=== PATIENT | female | born 1955 | race Native Hawaiian/Other Pacific Islander ===

== ENCOUNTER 2016-10-24 16:19 | Inpatient (IN) | payer OTHER ==
[~2016-10-24] VITALS: Ht 157.5 cm; Wt 78.9 kg
[~2016-10-24 16:19] MED LIST: BYSTOLIC10 MG PO; CEFD300C2 PO; CEFTIN250 MG OR; CELEXA20 MG PO; CEPH500C20 PO; FLUC150T PO; FLUT0.05 NAS; FURO40TA93 PO; HYDR25TA60 PO; HYDROCHLOROT12.5 M1 PO; HYZAAR1 TA2 PO; JANUMET1 TA1 PO; LANTUS SOLOSTAR SC; LEVO0.0529 PO; LOVAZA1 GM OR; MICRO-K10 MEQ PO; NEXIUM40 M1 PO; TEKTURNA HCT OR; TEKTURNA HCT PO; TRICOR145 MG PO; TYVASO0.6 MG/ML IN; VIAGRA25 MG PO; VICTOZA18 MG/3 ML SC; WARF4TAB7 PO; WARF5TAB6 PO
[2016-10-24 19:02] VITALS: BP 138/62; TEMP 98.8; Ht 157.5 cm; Wt 78.9 kg
[2016-10-24 19:47] LABS: PLATELET COUNT 188 K/uL (152-353)
[2016-10-24 20:01] LABS: PARTIAL THROMBOPLASTIN TIME 25.8 SECONDS (24.5-33.6)
[2016-10-24 20:04] LABS: POTASSIUM 2.9 mmol/L (3.6-5.2); SODIUM 140 mmol/L (136-145)
[2016-10-25] VITALS (11 sets, daily range): BP systolic 116–143; BP diastolic 51–74; TEMP 97.8–99.2
[2016-10-25] MEDS ORDERED: PANTPAK PO (05:42)
[2016-10-25] MEDS ORDERED: DULO60CA2 OR (05:43)
[2016-10-25] MEDS ORDERED: FORTAMET500 MG PO (05:44)
[2016-10-25] MEDS ORDERED: TREPROSTINIL IJ (05:48)
[2016-10-25] MEDS ORDERED: LETAIRIS5 MG OR (05:50)
[2016-10-25 06:05] LABS: POTASSIUM 2.7 mmol/L (3.6-5.2); SODIUM 142 mmol/L (136-145)
[2016-10-25 06:38] LABS: PLATELET COUNT 178 K/uL (152-353)
[2016-10-25 07:01] LABS: PARTIAL THROMBOPLASTIN TIME 26.5 SECONDS (24.5-33.6)
[2016-10-26 00:28] VITALS: BP 104/42; TEMP 99.1
[2016-10-26 04:00] VITALS: BP 120/45; TEMP 98.4
[2016-10-26 04:26] LABS: PLATELET COUNT 190 K/uL (152-353)
[2016-10-26 08:19] VITALS: BP 118/49; TEMP 98.3
[2016-10-26 12:00] VITALS: BP 100/40; TEMP 98.1
[2016-10-26 16:00] VITALS: BP 130/46; TEMP 98.9
[2016-10-26 20:00] VITALS: BP 123/44; TEMP 99.2
[2016-10-27] VITALS: BP 140/61; TEMP 98.3
[2016-10-27 04:00] VITALS: BP 115/61; TEMP 98.1
[2016-10-27 04:59] LABS: PLATELET COUNT 192 K/uL (152-353)
[2016-10-27 05:04] LABS: POTASSIUM 3.5 mmol/L (3.6-5.2); SODIUM 140 mmol/L (136-145)
[2016-10-27 08:00] VITALS: BP 156/66; TEMP 98.5
== END 2016-10-27 15:15 | disposition home or self-care (01) | DRG 920 ==
LOC: MED/SURG 16:19
PROVIDERS: Emergency Medicine; ADMIT Internal Medicine
PROC: 0H97XZZ Drainage of Abdomen Skin, External Approach (ICD-10-PCS; principal; 2016-10-25)
PROC: 02HV33Z Insertion of Infusion Device into Superior Vena Cava, Percutaneous Approach (ICD-10-PCS; 2016-10-27)
DX: T85.72XA Infection and inflammatory reaction due to insulin pump, initial encounter (principal); L02.211 Cutaneous abscess of abdominal wall; L03.311 Cellulitis of abdominal wall; B95.61 Methicillin susceptible Staphylococcus aureus infection as the cause of diseases classified elsewhere; Z79.01 Long term (current) use of anticoagulants; I10 Essential (primary) hypertension; E11.42 Type 2 diabetes mellitus with diabetic polyneuropathy
CPT/HCPCS: 36415; 36591; 80053; 81000; 82948; 83735; 85027; 85610; 85651; 85730; 87040; 87070; 87076; 87077; 87185; 87186; 87205; 96367; 96372; C1751; J1956; J2270; J2704; J3475; J3480; J3490; J7060; Q9963

== ENCOUNTER 2016-10-28 08:24 | Outpatient (CLI) | payer OTHER ==
[~2016-10-28 08:24] MED LIST changes: +DULO60CA2 OR; +FORTAMET500 MG PO; +LETAIRIS5 MG OR; +PANTPAK PO; +TREPROSTINIL IJ
== END 2016-10-28 19:05 | disposition home or self-care (01) ==
LOC: INF 08:24
DX: L03.311 Cellulitis of abdominal wall (principal)
CPT/HCPCS: 96365; 96366; J1642; J1956

== ENCOUNTER 2016-10-29 08:34 | Outpatient (CLI) | payer OTHER | END 2016-10-29 21:15 | disposition home or self-care (01) | LOC: INF 08:34 | DX: L03.311 Cellulitis of abdominal wall (principal) | CPT/HCPCS: 96365; 96366; J1956 ==

== ENCOUNTER 2016-10-30 09:27 | Outpatient (CLI) | payer OTHER | END 2016-10-30 19:11 | disposition home or self-care (01) | LOC: INF 09:27 | DX: L03.311 Cellulitis of abdominal wall (principal) | CPT/HCPCS: 96365; 96366; J1956 ==

== ENCOUNTER 2016-10-31 08:19 | Outpatient (CLI) | payer OTHER ==
[~2016-10-31] VITALS: Ht 157.5 cm; Wt 78.5 kg
[2016-10-31 08:25] VITALS: BP 134/64; TEMP 97.8
[2016-10-31 11:00] VITALS: BP 116/57; TEMP 97.8
== END 2016-10-31 19:17 | disposition home or self-care (01) ==
LOC: INF 08:19
DX: L03.311 Cellulitis of abdominal wall (principal)
CPT/HCPCS: 96365; 96366; J1956

== ENCOUNTER 2016-11-01 08:48 | Outpatient (CLI) | payer OTHER ==
[~2016-11-01] VITALS: Ht 157.5 cm; Wt 55.8 kg
[2016-11-01 08:55] VITALS: BP 134/63; TEMP 92
[2016-11-01 11:35] VITALS: BP 138/61; TEMP 92
== END 2016-11-01 19:04 | disposition home or self-care (01) ==
LOC: INF 08:48
DX: L03.311 Cellulitis of abdominal wall (principal)
CPT/HCPCS: 96365; 96366; J1956; J3370

== ENCOUNTER 2016-11-02 08:35 | Outpatient (CLI) | payer OTHER ==
[2016-11-02 08:50] VITALS: BP 142/67; TEMP 98.3
[2016-11-02 11:25] VITALS: BP 133/60
== END 2016-11-02 11:45 | disposition home or self-care (01) ==
LOC: INF 08:35
DX: L03.311 Cellulitis of abdominal wall (principal)
CPT/HCPCS: 96365; 96366; J1956

== ENCOUNTER 2017-02-28 15:37 | Outpatient (CLI) | payer OTHER | END 2017-02-28 16:40 | disposition home or self-care (01) | LOC: LABW 15:37 | DX: I27.2 Other secondary pulmonary hypertension (principal) | CPT/HCPCS: 36415; 82150; 83690 ==

== ENCOUNTER 2017-04-25 13:13 | Outpatient (CLI) | payer OTHER | END 2017-04-25 14:15 | disposition home or self-care (01) | LOC: MAMMO 13:13 | DX: Z12.31 Encounter for screening mammogram for malignant neoplasm of breast (principal) ==

== ENCOUNTER 2017-10-31 07:12 | Outpatient (CLI) | payer OTHER ==
[2017-10-31 12:16] LABS: PLATELET COUNT 193 K/uL (152-353)
[2017-10-31 12:18] LABS: PARTIAL THROMBOPLASTIN TIME 26.1 SECONDS (24.5-33.6)
[2017-10-31 12:32] LABS: POTASSIUM 4.1 mmol/L (3.6-5.2)
== END 2017-10-31 20:23 | disposition home or self-care (01) ==
LOC: LABW 07:12
PROVIDERS: Internal Medicine
DX: E11.9 Type 2 diabetes mellitus without complications (principal); I27.0 Primary pulmonary hypertension; Z79.891 Long term (current) use of opiate analgesic; Z51.81 Encounter for therapeutic drug level monitoring; Z01.811 Encounter for preprocedural respiratory examination; Z01.810 Encounter for preprocedural cardiovascular examination
CPT/HCPCS: 36415; 80053; 80061; 81000; 82043; 82570; 83036; 84443; 85027; 85610; 85730

== ENCOUNTER 2018-03-11 14:13 | Outpatient (CLI) | payer OTHER | END 2018-03-11 21:44 | disposition home or self-care (01) | LOC: LAB 14:13 → RAD 14:13 | DX: R60.0 Localized edema (principal); S31.109A Unspecified open wound of abdominal wall, unspecified quadrant without penetration into peritoneal cavity, initial encounter | CPT/HCPCS: 87070; 87205 ==

== ENCOUNTER 2018-03-13 11:18 | Outpatient (CLI) | payer OTHER | END 2018-03-13 19:30 | disposition home or self-care (01) | LOC: LABW 11:18 | DX: E83.42 Hypomagnesemia (principal); I49.3 Ventricular premature depolarization | CPT/HCPCS: 36415; 83735 ==

== ENCOUNTER 2018-03-28 17:36 | Outpatient (CLI) | payer OTHER | END 2018-03-28 23:26 | disposition home or self-care (01) | LOC: LABW 17:36 | DX: E83.42 Hypomagnesemia (principal); I49.3 Ventricular premature depolarization | CPT/HCPCS: 36415; 83735 ==

== ENCOUNTER 2018-05-27 10:48 | Outpatient (CLI) | payer OTHER | END 2018-05-27 19:23 | disposition home or self-care (01) | LOC: MAMMO 10:48 | DX: Z12.31 Encounter for screening mammogram for malignant neoplasm of breast (principal) ==

== ENCOUNTER 2019-05-14 19:30 | Emergency (ER) | payer OTHER ==
[~2019-05-14] VITALS: Ht 157.5 cm; Wt 72.6 kg
[2019-05-14 21:30] VITALS: BP 157/64; TEMP 97.5
== END 2019-05-14 21:30 | disposition home or self-care (01) ==
LOC: ED 19:30
DX: S81.811A Laceration without foreign body, right lower leg, initial encounter (principal); W45.8XXA Other foreign body or object entering through skin, initial encounter; Y92.89 Other specified places as the place of occurrence of the external cause
CPT/HCPCS: 90471; 90715; 96372; 99283; J0696

== ENCOUNTER 2020-05-12 11:00 | Outpatient (CLI) | payer OTHER | END 2020-05-12 20:12 | disposition home or self-care (01) | LOC: LABW 11:00 | DX: K64.0 First degree hemorrhoids (principal) | CPT/HCPCS: 82272; 82705; 83630; 87015; 87045; 87324; 87328; 87329; 87449; 87899 ==

== ENCOUNTER 2020-07-09 10:56 | Outpatient (CLI) | payer OTHER | END 2020-07-09 19:21 | disposition home or self-care (01) | LOC: US 10:56 | PROVIDERS: ATTEND Internal Medicine | DX: M79.662 Pain in left lower leg (principal); M79.661 Pain in right lower leg; R22.43 Localized swelling, mass and lump, lower limb, bilateral ==

== ENCOUNTER 2020-11-01 12:46 | Outpatient (CLI) | payer OTHER | END 2020-11-01 19:14 | disposition home or self-care (01) | LOC: MAMMO 12:46 | PROVIDERS: ATTEND Internal Medicine | DX: Z12.31 Encounter for screening mammogram for malignant neoplasm of breast (principal) ==

== ENCOUNTER 2020-11-12 08:08 | Outpatient (CLI) | payer OTHER | END 2020-11-12 20:52 | disposition home or self-care (01) | LOC: US 08:08 | PROVIDERS: ATTEND Internal Medicine Hematology & Oncology | DX: D64.89 Other specified anemias (principal); D69.6 Thrombocytopenia, unspecified ==

== ENCOUNTER 2021-01-21 07:05 | Outpatient (CLI) | payer MEDICARE ==
[2021-01-21 08:13] LABS: POTASSIUM 4.4 mmol/L (3.6-5.2)
[2021-01-21 08:37] LABS: PLATELET COUNT 84 K/uL (152-353)
== END 2021-01-21 23:00 | disposition home or self-care (01) ==
LOC: LABW 07:05
PROVIDERS: ATTEND Internal Medicine Hematology & Oncology
DX: D64.9 Anemia, unspecified (principal); D69.6 Thrombocytopenia, unspecified
CPT/HCPCS: 36415; 80053; 82728; 83540; 83550; 83615; 85008; 85027; 85044

== ENCOUNTER 2021-09-12 16:25 | Outpatient (CLI) | payer OTHER | END 2021-09-12 18:56 | disposition home or self-care (01) | LOC: RAD 16:25 | PROVIDERS: ATTEND Internal Medicine Pulmonary Disease | DX: I27.20 Pulmonary hypertension, unspecified (principal) ==

== ENCOUNTER 2021-11-25 10:13 | Outpatient (CLI) | payer OTHER ==
[2021-11-25 11:09] LABS: PLATELET COUNT 76 K/uL (152-353)
[2021-11-25 11:29] LABS: POTASSIUM 4.3 mmol/L (3.6-5.2)
== END 2021-11-25 19:59 | disposition home or self-care (01) ==
LOC: US 10:13
PROVIDERS: ATTEND Internal Medicine
DX: N18.4 Chronic kidney disease, stage 4 (severe) (principal)
CPT/HCPCS: 36415; 80053; 81000; 82043; 82330; 82436; 82570; 83735; 83880; 83970; 84100; 84156; 84300; 85027

== ENCOUNTER 2022-01-31 17:14 | Emergency (ER) | payer OTHER ==
[~2022-01-31] VITALS: Ht 157.5 cm; Wt 68.0 kg
[2022-01-31 17:59] LABS: PLATELET COUNT 48 K/uL (152-353)
[2022-01-31 18:00] LABS: POTASSIUM 3.4 mmol/L (3.6-5.2)
[2022-01-31 21:30] VITALS: BP 130/46; TEMP 97.3
== END 2022-01-31 21:30 | disposition short-term general hospital (02) ==
LOC: ED 17:14
PROVIDERS: Hospitalist
DX: U07.1 COVID-19 (principal); N17.8 Other acute kidney failure; E86.0 Dehydration; K92.1 Melena
CPT/HCPCS: 36600; 80053; 80320; 81002; 82272; 82550; 82805; 83880; 84484; 85027; 85610; 85730; 87635; 93005; 96360; 96361; 96365; 96375; 99284; J1170; J1815; J2405; J2543; J3490; U0003

== ENCOUNTER 2022-02-22 10:11 | Outpatient (CLI) | payer OTHER ==
[2022-02-22 11:12] LABS: PLATELET COUNT 110 K/uL (152-353)
[2022-02-22 11:51] LABS: POTASSIUM 3.6 mmol/L (3.6-5.2)
== END 2022-02-22 18:55 | disposition home or self-care (01) ==
LOC: LABW 10:11
PROVIDERS: ATTEND Internal Medicine
DX: N18.4 Chronic kidney disease, stage 4 (severe) (principal); Z79.899 Other long term (current) drug therapy
CPT/HCPCS: 36415; 80053; 81002; 82043; 82330; 82550; 82552; 82570; 82728; 83540; 83550; 83735; 83970; 84100; 84156; 84439; 84443; 84550; 85027

== ENCOUNTER 2022-05-27 16:37 | Outpatient (CLI) | payer OTHER ==
[2022-05-27 17:27] LABS: PLATELET COUNT 107 K/uL (152-353)
[2022-05-27 17:59] LABS: POTASSIUM 3.8 mmol/L (3.6-5.2)
== END 2022-05-27 20:31 | disposition home or self-care (01) ==
LOC: LABW 16:37
PROVIDERS: ATTEND Internal Medicine
DX: N18.4 Chronic kidney disease, stage 4 (severe) (principal); E11.9 Type 2 diabetes mellitus without complications; R53.83 Other fatigue
CPT/HCPCS: 36415; 80053; 81000; 82043; 82306; 82330; 82550; 82570; 83036; 83540; 83550; 83735; 83970; 84100; 84156; 84439; 84443; 84550; 85027; 85652; 86038; 87077; 87086; 87088; 87186

== ENCOUNTER 2022-08-08 12:48 | Outpatient (CLI) | payer OTHER | END 2022-08-08 19:18 | disposition home or self-care (01) | LOC: RESP 12:48 | PROVIDERS: ATTEND Internal Medicine Sleep Medicine | DX: I27.0 Primary pulmonary hypertension (principal) ==

== ENCOUNTER 2022-12-27 13:37 | Outpatient (CLI) | payer OTHER ==
[2022-12-27 13:57] LABS: PLATELET COUNT 86 K/uL (152-353)
[2022-12-27 14:46] LABS: POTASSIUM 3.5 mmol/L (3.6-5.2)
== END 2022-12-27 19:22 | disposition home or self-care (01) ==
LOC: LABW 13:37 → CT 14:00 → LABW 19:22
PROVIDERS: ATTEND Nurse Practitioner Family
DX: N18.4 Chronic kidney disease, stage 4 (severe) (principal); E11.9 Type 2 diabetes mellitus without complications; R53.83 Other fatigue; N39.0 Urinary tract infection, site not specified; Z87.891 Personal history of nicotine dependence; Z09 Encounter for follow-up examination after completed treatment for conditions other than malignant neoplasm
CPT/HCPCS: 36415; 80053; 81002; 82043; 82306; 82330; 82550; 82570; 83036; 83540; 83550; 83735; 83970; 84100; 84156; 84439; 84443; 84550; 85027; 85652; 86038; 87088

== ENCOUNTER 2023-01-11 13:22 | Outpatient (CLI) | payer OTHER | END 2023-01-11 19:01 | disposition home or self-care (01) | LOC: MAMMO 13:22 | PROVIDERS: ATTEND Nurse Practitioner | DX: Z12.31 Encounter for screening mammogram for malignant neoplasm of breast (principal) ==